=== PATIENT | female | born 1970 | race Caucasian/White ===

== ENCOUNTER 2020-02-22 09:07 | Inpatient (IN) | payer MEDICAID ==
[~2020-02-22] VITALS: Ht 160 cm; Wt 55.6 kg
[2020-02-22] MEDS ORDERED: ACETAMINOPHEN 325 MG TABLET PO ONE (09:45)
[2020-02-22] MEDS ORDERED: SODIUM CHLORIDE 0.9% 1,000 ML IV ONE (09:45)
[2020-02-22 09:46] LABS: BASOPHILS % (AUTO) 0.1 % (0.0-2.0); EOSINOPHILS % (AUTO) 0 % (1.0-6.0); HEMATOCRIT 32.4 % (36-46); HEMOGLOBIN 11.1 g/dL (12.0-16.0); LYMPHOCYTES # (AUTO) 0.7 K/uL (1.0-4.8); LYMPHOCYTES % (AUTO) 4.9 % (22.0-44.0); MEAN CORPUSCULAR HEMOGLOBIN 27.4 pg (26.0-34.0); MEAN CORPUSCULAR HGB CONC 34.3 G/dL (31.0-37.0); MEAN CORPUSCULAR VOLUME 80 fL (80-100); MONOCYTES # (AUTO) 0.4 K/uL (0.1-1.0); MONOCYTES % (AUTO) 2.5 % (2.0-9.0); NEUTROPHILS # (AUTO) 14.1 K/uL (1.8-7.7); PLATELET COUNT (AUTO) 501 K/uL (150-450); RED BLOOD CELL COUNT(AUTO) 4.05 MIL/uL (4.00-5.20); RED CELL DISTRIBUTION WIDTH 16.1 % (11.5-14.5)
[2020-02-22] MEDS ORDERED: METF-960 PO (09:48)
[2020-02-22] MEDS ORDERED: ENAL10TA2 PO (09:48)
[2020-02-22 10:04] LABS: NEUTROPHILS % (AUTO) 92.5 % (40.0-70.0)
[2020-02-22 10:26] LABS: ANION GAP 9 mmol/L (8-16); CALCIUM, TOTAL 8.7 mg/dL (8.8-10.5); CARBON DIOXIDE 27 mmol/L (22-29); CHLORIDE 97 mmol/L (98-107); CREATININE 0.83 mg/dL (0.60-1.30); GLOMERULAR FILTR. RATE CALC > 60 mL/min (>60); GLUCOSE,RANDOM 218 mg/dL (70-110); POTASSIUM 3.3 mmol/L (3.5-5.1); SODIUM SERUM 133 mmol/L (136-145); UREA NITROGEN, BLOOD 8 mg/dL (7-18)
[2020-02-22] MEDS ORDERED: AZITHROMYCIN 500 MG/NS 250 ML IV ONE (10:30)
[2020-02-22] MEDS ORDERED: DEXAMETHASONE SOD PHOS 4 MG/ML VIAL IVP ONE (10:30)
[2020-02-22] MEDS ORDERED: CefTRIAXone 1 GM/DEXTROSE 50 ML IV ONE (10:30)
[2020-02-22 10:36] LABS: GLUCOSE,POINT OF CARE 213 MG/DL (70-110)
[2020-02-22 10:40] LABS: ALANINE AMINOTRANSFERASE 45 U/L (12-78); ALBUMIN 2.6 g/dL (3.4-5.0); ALKALINE PHOSPHATASE 126 U/L (46-116); ASPARTATE AMINOTRANSFERASE 21 U/L (15-37); BILIRUBIN,TOTAL 0.3 mg/dL (0.1-1.0); LACTATE DEHYDROGENASE 163 U/L (81-234); TOTAL PROTEIN, SERUM 7.5 g/dL (6.4-8.2)
[2020-02-22 10:53] LABS: C-REACTIVE PROTEIN QUANT 32.47 mg/dL (0.00-0.30)
[2020-02-22 11:09] LABS: FERRITIN 214 ng/mL (8-252)
[2020-02-22] MEDS ORDERED: ACETAMINOPHEN 325 MG TABLET PO PRN ×2 (11:45→19:30)
[2020-02-22] MEDS ORDERED: POTASSIUM CHLORIDE 20 MEQ ER TABLET PO ONE (11:45)
[2020-02-22] MEDS ORDERED: ONDANSETRON HCL 4 MG/2 ML VIAL IVP PRN ×2 (11:45→19:30)
[2020-02-22] MEDS ORDERED: 0.9% SODIUM CHLORIDE 10 ML SYRINGE IVP PRN (11:45)
[2020-02-22] MEDS: OXYGEN THERAPY IH SCH ×2 (11:45→20:00)
[2020-02-22] MEDS ORDERED: SODIUM CHLORIDE 0.9% 250 ML IV ONE (12:35)
[2020-02-22 12:42] VITALS: BP 123/67
[2020-02-22 16:36] VITALS: BP 131/72
[2020-02-22] MEDS ORDERED: MAGNESIUM HYDROXIDE SUSPENSION 30 ML UDCUP PO PRN (19:30)
[2020-02-22] MEDS ORDERED: ALBUTEROL SULFATE 2.5 MG/0.5 ML NEB SOLUTION NEB PRN (19:30)
[2020-02-22] MEDS ORDERED: BISACODYL 10 MG RECTAL RECTAL SUPPOSITORY PR PRN (19:30)
[2020-02-22] MEDS ORDERED: MORPHINE SULFATE 2 MG/ML SYRINGE IVP PRN (19:30)
[2020-02-22] MEDS ORDERED: ZOLPIDEM TARTRATE 5 MG TABLET PO PRN (19:30)
[2020-02-22] MEDS ORDERED: HYDROCODONE/ACETAMINOPHEN 5-325 MG TABLET PO PRN (19:30)
[2020-02-22] MEDS ORDERED: IPRATROPIUM BROMIDE 0.5 MG/2.5 ML NEB SOLUTION NEB PRN (19:30)
[2020-02-22] MEDS ORDERED: DEXTROSE 50%-WATER 25 GM/50 ML SYRINGE IVP PRN (19:45)
[2020-02-22 19:47] VITALS: BP 129/82
[2020-02-22] MEDS ORDERED: REMDESIVIR **INVESTIGATIONAL** 200 MG in SODIUM CHLORIDE 0.9% 210 ML IV ONE (20:00)
[2020-02-22] MEDS: DOCUSATE SODIUM 100 MG CAPSULE PO SCH (20:23)
[2020-02-22] MEDS: ENALAPRIL MALEATE 10 MG TABLET PO SCH (20:23)
[2020-02-22 23:20] VITALS: BP 134/72
[2020-02-23] MEDS: HEPARIN SODIUM,PORCINE 5,000 UNITS/ML VIAL SQ SCH ×3 (00:31→18:03)
[2020-02-23] MEDS: INSULIN LISPRO 100 UNITS/ML SQ PRN ×5 (00:37→20:23)
[2020-02-23 03:16] LABS: GLUCOMETER DEV NAME(LOC) 5N.1; GLUCOSE,POINT OF CARE 298 MG/DL (70-110)
[2020-02-23 04:27] VITALS: BP 129/75
[2020-02-23 06:28] LABS: BASOPHILS % (AUTO) 0.3 % (0.0-2.0); EOSINOPHILS % (AUTO) 0 % (1.0-6.0); HEMATOCRIT 34.1 % (36-46); HEMOGLOBIN 11.4 g/dL (12.0-16.0); MEAN CORPUSCULAR HEMOGLOBIN 27.1 pg (26.0-34.0); MEAN CORPUSCULAR HGB CONC 33.5 G/dL (31.0-37.0); MEAN CORPUSCULAR VOLUME 81 fL (80-100); MONOCYTES # (AUTO) 0.5 K/uL (0.1-1.0); MONOCYTES % (AUTO) 7.7 % (2.0-9.0); NEUTROPHILS # (AUTO) 5.3 K/uL (1.8-7.7); PLATELET COUNT (AUTO) 591 K/uL (150-450); RED BLOOD CELL COUNT(AUTO) 4.21 MIL/uL (4.00-5.20); RED CELL DISTRIBUTION WIDTH 16.2 % (11.5-14.5)
[2020-02-23 06:41] LABS: ALANINE AMINOTRANSFERASE 39 U/L (12-78); ALBUMIN 2.3 g/dL (3.4-5.0); ALKALINE PHOSPHATASE 108 U/L (46-116); ANION GAP 10 mmol/L (8-16); ASPARTATE AMINOTRANSFERASE 21 U/L (15-37); BILIRUBIN,TOTAL 0.2 mg/dL (0.1-1.0); CALCIUM, TOTAL 8.8 mg/dL (8.8-10.5); CARBON DIOXIDE 26 mmol/L (22-29); CHLORIDE 101 mmol/L (98-107); CREATININE 0.72 mg/dL (0.60-1.30); GLOMERULAR FILTR. RATE CALC > 60 mL/min (>60); GLUCOSE,RANDOM 291 mg/dL (70-110); POTASSIUM 3.8 mmol/L (3.5-5.1); SODIUM SERUM 137 mmol/L (136-145); TOTAL PROTEIN, SERUM 7.1 g/dL (6.4-8.2); UREA NITROGEN, BLOOD 16 mg/dL (7-18)
[2020-02-23 07:31] LABS: GLUCOMETER DEV NAME(LOC) 5N.1; GLUCOSE,POINT OF CARE 261 MG/DL (70-110)
[2020-02-23 07:55] VITALS: BP 129/65
[2020-02-23] MEDS: OXYGEN THERAPY IH SCH ×2 (08:00→20:00)
[2020-02-23] MEDS: DEXAMETHASONE 2 MG TABLET PO SCH (09:18)
[2020-02-23] MEDS: DOCUSATE SODIUM 100 MG CAPSULE PO SCH ×2 (09:18→20:22)
[2020-02-23] MEDS: ENALAPRIL MALEATE 10 MG TABLET PO SCH ×2 (09:18→20:22)
[2020-02-23] MEDS: CefTRIAXone 1 GM/DEXTROSE 50 ML IV SCH (10:55)
[2020-02-23 11:57] VITALS: BP 133/71
[2020-02-23] MEDS: AZITHROMYCIN 500 MG/NS 250 ML IV SCH (12:04)
[2020-02-23] MEDS ORDERED: GuaiFENesin/D-METHORPHAN [SUGAR-FREE] 200-20MG/10 ML SYRUP UDCUP PO PRN (14:00)
[2020-02-23 16:42] VITALS: BP 140/78
[2020-02-23 19:58] VITALS: BP 126/73
[2020-02-23] MEDS ORDERED: REMDESIVIR **INVESTIGATIONAL** 100 MG in SODIUM CHLORIDE 0.9% 230 ML IV SCH (20:00)
[2020-02-23 21:32] LABS: GLUCOMETER DEV NAME(LOC) 5N.3; GLUCOSE,POINT OF CARE 351 MG/DL (70-110)
[2020-02-23 21:32] LABS: GLUCOMETER DEV NAME(LOC) 5N.3; GLUCOSE,POINT OF CARE 290 MG/DL (70-110)
[2020-02-23 21:32] LABS: GLUCOMETER DEV NAME(LOC) 5N.3; GLUCOSE,POINT OF CARE 336 MG/DL (70-110)
[2020-02-23 23:24] VITALS: BP 134/75
[2020-02-24] MEDS: HEPARIN SODIUM,PORCINE 5,000 UNITS/ML VIAL SQ SCH ×2 (00:13→08:30)
[2020-02-24 04:48] VITALS: BP 133/72
[2020-02-24] MEDS: INSULIN LISPRO 100 UNITS/ML SQ PRN ×2 (05:51→11:15)
[2020-02-24 07:40] VITALS: BP 121/63
[2020-02-24] MEDS: OXYGEN THERAPY IH SCH (08:00)
[2020-02-24] MEDS: DEXAMETHASONE 2 MG TABLET PO SCH (08:30)
[2020-02-24] MEDS: ENALAPRIL MALEATE 10 MG TABLET PO SCH (08:31)
[2020-02-24] MEDS: DOCUSATE SODIUM 100 MG CAPSULE PO SCH (08:31)
[2020-02-24] MEDS: CefTRIAXone 1 GM/DEXTROSE 50 ML IV SCH (10:48)
[2020-02-24 11:22] LABS: GLUCOMETER DEV NAME(LOC) 5N.3; GLUCOSE,POINT OF CARE 259 MG/DL (70-110)
[2020-02-24 11:22] LABS: GLUCOMETER DEV NAME(LOC) 5N.3; GLUCOSE,POINT OF CARE 331 MG/DL (70-110)
[2020-02-24 11:30] VITALS: BP 131/63
[2020-02-24] MEDS: AZITHROMYCIN 500 MG/NS 250 ML IV SCH (11:56)
[2020-02-24] MEDS ORDERED: LEVO750T68 PO (14:13)
[2020-02-24] MEDS ORDERED: GUAIFDM PO (14:13)
== END 2020-02-24 14:50 | disposition home or self-care (01) | DRG 177 ==
LOC: EMS 09:09 → 5N 11:40
PROVIDERS: ADMIT Hospitalist; ATTEND Hospitalist
PROC: XW033E5 Introduction of Remdesivir Anti-infective into Peripheral Vein, Percutaneous Approach, New Technology Group 5 (ICD-10-PCS; principal; 2020-02-23)
DX: U07.1 COVID-19 (principal); J12.89 Other viral pneumonia; I10 Essential (primary) hypertension; E78.5 Hyperlipidemia, unspecified; E11.9 Type 2 diabetes mellitus without complications; E78.00 Pure hypercholesterolemia, unspecified; Z90.49 Acquired absence of other specified parts of digestive tract
CPT/HCPCS: 82728; 83605; 83615; 84145; 85379; 86140; 87040; J0456; J0696; J1100; J1644; J7030; J7050; J8540; 36415-L1; 36415-TC; 71045-TC; U0003-CS

== ENCOUNTER 2024-10-31 20:10 | Emergency (ER) | payer MEDICAID ==
[~2024-10-31] VITALS: Ht 160 cm; Wt 60.9 kg
[~2024-10-31 20:10] MED LIST: ENAL-90 PO; GUAIFDM PO; LEVO750T68 PO; METF-1211 PO
[2024-10-31 20:13] VITALS: BP 147/67; PULSE 77; RESP 20; TEMP 97.9; O2SAT 98
[2024-10-31 20:35] LABS: GLUCOMETER DEV NAME(LOC) ER.7; GLUCOSE,POINT OF CARE 315 MG/DL (70-110)
[2024-10-31] MEDS: KETOROLAC TROMETHAMINE 60 MG/2 ML VIAL IM ONE (23:57)
[2024-10-31] MEDS: ACETAMINOPHEN/CODEINE 300-30 MG TABLET PO ONE (23:57)
[2024-11-01 00:16] LABS: EOSINOPHILS % (AUTO) 1.9 % (1.0-6.0); HEMATOCRIT 36.2 % (36-46); LYMPHOCYTES # (AUTO) 2.1 K/uL (1.0-4.8); LYMPHOCYTES % (AUTO) 35.5 % (22.0-44.0); MEAN CORPUSCULAR HEMOGLOBIN 28.1 pg (26.0-34.0); MEAN CORPUSCULAR HGB CONC 33.2 G/dL (31.0-37.0); MEAN CORPUSCULAR VOLUME 85 fL (80-100); MONOCYTES # (AUTO) 0.5 K/uL (0.1-1.0); MONOCYTES % (AUTO) 8.9 % (2.0-9.0); NEUTROPHILS # (AUTO) 3.1 K/uL (1.8-7.7); NEUTROPHILS % (AUTO) 52.7 % (40.0-70.0); PLATELET COUNT (AUTO) 447 K/uL (150-450); RED BLOOD CELL COUNT(AUTO) 4.28 MIL/uL (4.00-5.20); RED CELL DISTRIBUTION WIDTH 15.1 % (11.5-14.5)
[2024-11-01 00:20] LABS: ANION GAP 2 mmol/L (8-16); CALCIUM, TOTAL 9.1 mg/dL (8.8-10.5); CARBON DIOXIDE 32 mmol/L (22-29); CHLORIDE 98 mmol/L (98-107); CREATININE 0.69 mg/dL (0.60-1.30); GLOMERULAR FILTR. RATE CALC > 60 mL/min (>60); GLUCOSE,RANDOM 326 mg/dL (70-110); POTASSIUM 4.1 mmol/L (3.5-5.1); SODIUM SERUM 132 mmol/L (136-145); UREA NITROGEN, BLOOD 17 mg/dL (7-18)
[2024-11-01 00:30] LABS: TROPONIN I-HIGH SENSITIVITY Less Than 4 ng/L (<51)
[2024-11-01] MEDS ORDERED: IBUP-1554 PO (00:51)
[2024-11-01] MEDS ORDERED: ACET-2080 PO (00:51)
== END 2024-11-01 01:08 | disposition home or self-care (01) ==
LOC: EMS 20:10
DX: N64.4 Mastodynia (principal); E11.65 Type 2 diabetes mellitus with hyperglycemia; E78.00 Pure hypercholesterolemia, unspecified; Z79.84 Long term (current) use of oral hypoglycemic drugs; Z79.899 Other long term (current) drug therapy; Z90.49 Acquired absence of other specified parts of digestive tract
CPT/HCPCS: 99284; 80048; 82962; 84484; 85025; 36415; 93005; 96372; J1885